=== PATIENT | female | born 1945 | race Caucasian/White ===

== ENCOUNTER 2018-01-28 08:29 | Day surgery (SDC) | payer MEDICARE, BC ==
[~2018-01-28] VITALS: Ht 167.6 cm; Wt 114.7 kg
[~2018-01-28 08:29] MED LIST: AMLO10 PO; AMLO5 PO; ATOR20 PO; ATOR40TA PO; Actos15 MG PO; Adult Low Dose81 MG PO; Aspir 8181 MG PO; Benicar Hct 401 EAC1 PO; CHOL10002 PO; Crestor20 MG PO; GLIP10 PO; NAPR220 PO; OLME40 PO; PIOG15 PO; Percocet 7.5-31 EACH PO; SITA100T2 PO; Tylenol325 MG PO
== END 2018-01-28 10:45 | disposition home or self-care (01) ==
LOC: ORSCSDS 08:29
PROVIDERS: Ophthalmology
PROC: 08RK3JZ Replacement of Left Lens with Synthetic Substitute, Percutaneous Approach (ICD-10-PCS; principal; 2018-01-28 10:00)
DX: H25.12 Age-related nuclear cataract, left eye (principal); I10 Essential (primary) hypertension; E66.01 Morbid (severe) obesity due to excess calories; Z68.41 Body mass index [BMI] 40.0-44.9, adult; Z79.899 Other long term (current) drug therapy
CPT/HCPCS: 82947; J2250; J3010; J3301; J7040; V2632

== ENCOUNTER 2023-12-05 15:59 | Inpatient (IN) | payer MEDICARE ==
[~2023-12-05] VITALS: Ht 165.1 cm; Wt 95.0 kg
[~2023-12-05 15:59] MED LIST changes: -CALC.25 PO; -CALTRATE 600 P1 EACH PO; -ELIQUIS5 M2 PO; -LOSA50 PO; -ONDA4 PO; -PROLIA60 MG/1 ML SC; -Preservision S1 EACH PO; -VISBIOME 112.51 EACH PO; -Vitamin D2000 UNIT PO
[2023-12-05 20:41] VITALS: BP 186/89
[2023-12-05] MEDS ORDERED: Vitamin D2000 UNIT PO (21:00)
[2023-12-05] MEDS ORDERED: LOSA50 PO (21:09)
[2023-12-05] MEDS ORDERED: CALC.25 PO (21:10)
[2023-12-05] MEDS ORDERED: Preservision S1 EACH PO (21:11)
[2023-12-05] MEDS ORDERED: CALTRATE 600 P1 EACH PO (21:12)
[2023-12-05 21:34] LABS: Anti-Xa UFH, PHA Monitoring <0.10 IU/mL; Prothrombin Time Results 10.5 Sec (9.7-11.5)
--- NOTE | 2023-12-05 22:24 | NUR ---
2032: REPORT RECEIVED FROM MATEUSZ ZAVALA IN THE ED. PT ARRIVED THE UNIT VIA W/C. AMBULATED TO THE BATHROOM WITH SBA, STEADY GAIT. A/OX4, NO ACUTE DISTRESS AT THIS TIME. BREATHING IS EVEN AND UNLABORED WITH WHEEZES IN THE BASES. HEPARIN DRIP STARTED PER ORDERS, BOLUS PROVIDED. PT TOLERATED WELL. TELEMTRY IN PLACE EDUCATED TO MEDICATIONS, ROOM, FALL PRECAUTIONS, FIRE SAFETY, AND DISEASE PROCESSESS PERTAINING TO THIS ADMISSION. CALL LIGHT WITHIN REACH, WATER PROVIDED. SECOND PIV TO BE STARTED, CURRENT PIV TO THE LEFT AC IS PATENT. NEEDS ADDRESSED AT THIS TIME. RT CONTACTED TO START CONTINUOUS PULSE OXIMETRY MONITORING.
[2023-12-05 22:47] VITALS: BP 191/81
[2023-12-05 23:15] VITALS: BP 175/91
--- NOTE | 2023-12-06 00:12 | NUR ---
2315: PT WITH N/V 15-20 MINUTES POST START OF AZITHROMYCIN IV. ABX STOPPED. VSS WITH IMPROVED HTN. PT REPORTS NAUSEA IMPROVING WITHIN 5 MINUTES. CALL TO HOSPITALIST, NEW ORDERS RECEIVED, SEE EMR.
[2023-12-06 02:30] VITALS: BP 166/77
--- NOTE | 2023-12-06 05:07 | NUR ---
NAUSEA RESOLVED AND NOT RECURRENT. PT SLEPT THROUGH NIGHT WITH MINIMAL DISTURBANCE. HEPARIN RUNNING WITHOUT INTERUPTION SINCE START. OXYGEN SATURATION MAINTAINED >92% ON ROOM AIR THROUGH THE SHIFT. PT REPORTS NO PAIN. SAFETY MEASURES TAKEN, ALL NEEDS ADDRESSED.
[2023-12-06 05:26] LABS: BASOPHILS ABSOLUTE AUTO 0.03 K/mm3 (0.00-0.23); BASOPHILS PERCENT AUTO 0 % (0-2); EOSINOPHILS ABSOLUTE AUTO 0.08 K/mm3 (0.00-0.68); EOSINOPHILS PERCENT AUTO 1 % (0-6); Hematocrit 29.4 % (33.0-51.0); Hemoglobin 9.4 g/dL (11.5-16.0); IMMATURE GRAN ABSOLUTE AUTO 0.03 K/mm3 (0.00-0.10); IMMATURE GRAN PERCENT AUTO 0 % (0-1); LYMPHOCYTES ABSOLUTE AUTO 0.76 K/mm3 (0.84-5.20); LYMPHOCYTES PERCENT AUTO 8 % (21-46); MONOCYTES ABSOLUTE AUTO 0.47 K/mm3 (0.16-1.47); MONOCYTES PERCENT AUTO 5 % (4-13); Mean Corpuscular HGB 30.7 pg (26.0-34.0); Mean Corpuscular Volume 96 fL (80-100); Mean Platelet Volume 11.6 fL (9.1-12.4); NEUTROPHILS ABSOLUTE AUTO 7.64 K/mm3 (1.96-9.15); NEUTROPHILS PERCENT AUTO 85 % (41-73); Platelet Count 144 K/mm3 (150-400); RDW Coefficient Variation 14.5 % (11.7-14.2); RDW Standard Deviation 50.4 fL (35.1-46.3); Red Blood Cell Count 3.06 M/mm3 (3.80-5.20); White Blood Cell Count 9.01 K/mm3 (4.00-11.30)
[2023-12-06 06:03] LABS: Albumin, Blood 2.8 g/dL (3.4-5.0); Albumin/Globulin Ratio 0.8 (0.8-1.8); Bilirubin, Total 0.4 mg/dL (0.1-1.0); Bun/Creatinine Ratio 24.2 (12.0-20.0); Calcium, Blood 8.1 mg/dL (8.5-10.1); Creatinine, Blood 2.89 mg/dL (0.40-1.00); Globulin, Blood 3.5 g/dL (2.2-4.0); Potassium, Blood 4.9 mmol/L (3.5-5.5); Total Protein, Blood 6.3 g/dL (6.4-8.2)
--- NOTE | 2023-12-06 07:28 | NUR ---
0650: HEPARIN INFUSION ON HOLD PER PHARMACY FOR ONE HOUR. NEW ORDERS TO BE PLACED FOR 0750 RESTART. DAY SHIFT RN ADVISED.
[2023-12-06 07:38] VITALS: BP 182/100
--- NOTE | 2023-12-06 15:54 | NUR ---
SHIFT SUMMARY PT AWAKE AND UP TO BSC DURING SHIFT REPORT; PT HAVING SOME DIARRHEA TODAY, AFTER STARTING ABX LAST NIGHT. PT IS 1P SBA WITH IV TUBING. PT'S HEPARIN DRIP WAS ON HOLD FOR 1 HOUR, PER PHARMACY, AT START OF SHIFT AND THEN RESTARTED. PT TAKEN DOWN TO IMAGING FOR LUNG SCAN THIS AM VIA W/C. EXHAUST AND MUFFLER FITTER TO LATER PER ORDERS, BUT PT HAVING NAUSEA AND REQUESTED TO WAIT. EXHAUST AND MUFFLER FITTER RETURNED LATER AND COMPLETED ORDERS. PT'S TO THIS AFTERNOON AND REMAINS AT BS. PT RESTING QUIETLY BETWEEN VISITING. DENIED FURTHER NEEDS. CALL LT IN REACH.
[2023-12-06 16:08] VITALS: BP 147/81
[2023-12-06 19:22] VITALS: BP 171/99
[2023-12-06 22:05] VITALS: BP 162/82
[2023-12-07] VITALS (7 sets, daily range): BP systolic 133–189; BP diastolic 59–95
[2023-12-07 03:22] LABS: BASOPHILS ABSOLUTE AUTO 0.04 K/mm3 (0.00-0.23); BASOPHILS PERCENT AUTO 0 % (0-2); EOSINOPHILS ABSOLUTE AUTO 0.19 K/mm3 (0.00-0.68); EOSINOPHILS PERCENT AUTO 2 % (0-6); Hematocrit 31.1 % (33.0-51.0); Hemoglobin 9.9 g/dL (11.5-16.0); IMMATURE GRAN ABSOLUTE AUTO 0.04 K/mm3 (0.00-0.10); IMMATURE GRAN PERCENT AUTO 0 % (0-1); LYMPHOCYTES ABSOLUTE AUTO 1.42 K/mm3 (0.84-5.20); LYMPHOCYTES PERCENT AUTO 15 % (21-46); MONOCYTES ABSOLUTE AUTO 0.63 K/mm3 (0.16-1.47); MONOCYTES PERCENT AUTO 6 % (4-13); Mean Corpuscular HGB 30.6 pg (26.0-34.0); Mean Corpuscular HGB Conc 31.8 g/dL (31.5-36.5); Mean Corpuscular Volume 96 fL (80-100); Mean Platelet Volume 11.7 fL (9.1-12.4); NEUTROPHILS ABSOLUTE AUTO 7.47 K/mm3 (1.96-9.15); NEUTROPHILS PERCENT AUTO 76 % (41-73); Platelet Count 182 K/mm3 (150-400); RDW Coefficient Variation 14.6 % (11.7-14.2); RDW Standard Deviation 50.7 fL (35.1-46.3); Red Blood Cell Count 3.24 M/mm3 (3.80-5.20); White Blood Cell Count 9.79 K/mm3 (4.00-11.30)
[2023-12-07 03:41] LABS: Calcium, Blood 8.2 mg/dL (8.5-10.1); Creatinine, Blood 2.87 mg/dL (0.40-1.00); Potassium, Blood 4.3 mmol/L (3.5-5.5)
--- NOTE | 2023-12-07 03:57 | NUR ---
1900: ASSUMED CARE OF PT, BEDSIDE REPORT RECEIVED FROM MATEUSZ OLVERA. PT IS A/OX4, LAYING IN BED WITH HOB ELEVATED. ABLE TO MAKE NEEDS KNOWN. NO ACUTE CHANGES DURING THE NIGHT. HEPARIN MONITORED BY PHARMACY, NO CHANGES. NO PAUSES IN INFUSION. NO S/S OF ADVERSE BLEEDING. PT REPORTED DIAHREA YESTERDAY, NO DIARHEA THIS SHIFT. PT IS ABLE TO MAINTAIN OXYGEN SATURATION 93-96% ON ROOM AIR. TELEMETRY MAINTAINED. SAFETY MEASURES TAKEN AND ALL NEEDS ADDRESSED.
--- NOTE | 2023-12-07 11:36 | NUR ---
SPOKE TO DR CAMACHO, HE PLACING ORDERS TO STOP HEPARIN. OKAY TO STOP NOW AND OKAY FOR PT TO WALK HALLS.
--- NOTE | 2023-12-07 17:25 | NUR ---
PT QUITE PLEASANT TODAY. D/C'D HEPARIN TODAY, STARTED ELIQUVIKRAM. PT AMBULATED PART OF ECHEVERRIA AND CAME BACK STATED SOME SOB. WHEN AT ROOM, HOOKED TO CONT BIOX, SHOWED 88 THEN READILY CAME BACK TO 92% WITH R/A. NO C/O PAIN OR SOB AT REST. NO OTHER NEW CONCERNS NOTED. HUSB AT BEDSIDE. BED IN LOW POSITION, CALL LITE IN REACH, CALLS APROP
[2023-12-08 04:29] VITALS: BP 144/79
[2023-12-08 05:20] LABS: BASOPHILS ABSOLUTE AUTO 0.02 K/mm3 (0.00-0.23); BASOPHILS PERCENT AUTO 0 % (0-2); EOSINOPHILS ABSOLUTE AUTO 0.24 K/mm3 (0.00-0.68); EOSINOPHILS PERCENT AUTO 4 % (0-6); Hemoglobin 9.2 g/dL (11.5-16.0); IMMATURE GRAN ABSOLUTE AUTO 0.03 K/mm3 (0.00-0.10); IMMATURE GRAN PERCENT AUTO 0 % (0-1); LYMPHOCYTES ABSOLUTE AUTO 0.99 K/mm3 (0.84-5.20); LYMPHOCYTES PERCENT AUTO 15 % (21-46); MONOCYTES ABSOLUTE AUTO 0.55 K/mm3 (0.16-1.47); MONOCYTES PERCENT AUTO 8 % (4-13); Mean Corpuscular HGB 30.1 pg (26.0-34.0); Mean Corpuscular HGB Conc 30.7 g/dL (31.5-36.5); Mean Corpuscular Volume 98 fL (80-100); NEUTROPHILS ABSOLUTE AUTO 4.93 K/mm3 (1.96-9.15); NEUTROPHILS PERCENT AUTO 73 % (41-73); NRBC ABSOLUTE 0.02 K/mm3 (0.00-0.02); NRBC Auto 0.3 /100 WBC (0.0-0.2); Platelet Count 161 K/mm3 (150-400); RDW Coefficient Variation 14.8 % (11.7-14.2); RDW Standard Deviation 52.7 fL (35.1-46.3); Red Blood Cell Count 3.06 M/mm3 (3.80-5.20); White Blood Cell Count 6.76 K/mm3 (4.00-11.30)
[2023-12-08 05:40] LABS: Bun/Creatinine Ratio 20.6 (12.0-20.0); Calcium, Blood 7.9 mg/dL (8.5-10.1); Creatinine, Blood 3.49 mg/dL (0.40-1.00); Potassium, Blood 4.1 mmol/L (3.5-5.5)
--- NOTE | 2023-12-08 05:42 | NUR ---
1900: ASSUMED CARE OF PT, BEDSIDE REPORT RECEIVED FROM MATEUSZ MEYER. PT IS LAYING IN BED WITH HOB ELEVATED. A/OX4, REPORTS NO PAIN AND IMPROVED SYMPTOMS. OBSTETRICIAN AND GYNAECOLOGIST IN PLACE. UP SBA TO BSC MULTIPLE TIMES DURING THE NIGHT. MILD EDEMA TO RIGHT FOREARM AND HAND, PT REPORTS THIS HAS HAPPENED BEFORE WHEN SHE IS NOT VERY ACTIVE. WILL CONTINUTE TO MONITOR. ELEVATED ON PILLOWS AT THIS TIME. PIV SHOWS NO S/S OF INFILTRATION OR INFECTION, NO PAIN. RESPIRATIONS ARE IMPROVED TO DIMINISHED IN THE BASES, WHEEZES ARE RESOLVED. NEEDS ADDRESSED THROUGHOUT THE SHIFT, SAFETY MEASURES TAKEN.
[2023-12-08 07:29] VITALS: BP 151/74
[2023-12-08 15:35] VITALS: BP 134/70
--- NOTE | 2023-12-08 17:08 | NUR ---
SHIFT SUMMARY TOOK OVER CARE OF PATIENT AT 1500. PATIENT DENIES PAIN, NAUSEA, AND SHORTNESS OF BREATH. PATIENT IS A SBA TO THE BATHROOM. PATIENT EATING AND DRINKING WELL. PATIENT HAD VISITORS IN AFTERNOON. PATIENT POSSIBLE DISCHARGE FOR TOMORROW PER DR. MG. PATIENT EAGER TO GO HOME. CALL LIGHT WITHIN REACH. PATIENT IS PLEASANT AND COOPERATIVE WITH CARE.
[2023-12-08 19:36] VITALS: BP 141/69
[2023-12-08] MEDS ORDERED: PROLIA60 MG/1 ML SC (23:43)
[2023-12-09 03:52] VITALS: BP 142/71
[2023-12-09 04:57] LABS: BASOPHILS ABSOLUTE AUTO 0.02 K/mm3 (0.00-0.23); BASOPHILS PERCENT AUTO 0 % (0-2); EOSINOPHILS ABSOLUTE AUTO 0.23 K/mm3 (0.00-0.68); EOSINOPHILS PERCENT AUTO 3 % (0-6); Hemoglobin 9.2 g/dL (11.5-16.0); IMMATURE GRAN ABSOLUTE AUTO 0.02 K/mm3 (0.00-0.10); IMMATURE GRAN PERCENT AUTO 0 % (0-1); LYMPHOCYTES ABSOLUTE AUTO 1.01 K/mm3 (0.84-5.20); LYMPHOCYTES PERCENT AUTO 15 % (21-46); MONOCYTES ABSOLUTE AUTO 0.63 K/mm3 (0.16-1.47); MONOCYTES PERCENT AUTO 9 % (4-13); Mean Corpuscular HGB 30.8 pg (26.0-34.0); Mean Corpuscular HGB Conc 31.7 g/dL (31.5-36.5); Mean Corpuscular Volume 97 fL (80-100); Mean Platelet Volume 10.8 fL (9.1-12.4); NEUTROPHILS PERCENT AUTO 72 % (41-73); Platelet Count 169 K/mm3 (150-400); RDW Coefficient Variation 14.7 % (11.7-14.2); RDW Standard Deviation 50.9 fL (35.1-46.3); Red Blood Cell Count 2.99 M/mm3 (3.80-5.20); White Blood Cell Count 6.81 K/mm3 (4.00-11.30)
[2023-12-09 05:21] LABS: Albumin, Blood 2.7 g/dL (3.4-5.0); Anion Gap 8 mmol/L (6-16); Blood Urea Nitrogen 72 mg/dL (8-24); Bun/Creatinine Ratio 18.8 (12.0-20.0); CO2, Blood 20 mmol/L (21-32); Calcium, Blood 7.6 mg/dL (8.5-10.1); Chloride, Blood 106 mmol/L (98-108); Creatinine, Blood 3.84 mg/dL (0.40-1.00); Glomerular Filtration Rate 12 (60-); Glucose, Blood 150 mg/dL (70-99); Phosphorus, Blood 4.7 mg/dL (2.5-4.9); Potassium, Blood 3.9 mmol/L (3.5-5.5); Sodium, Blood 134 mmol/L (136-145)
--- NOTE | 2023-12-09 06:48 | NUR ---
SUMMARY: PT A/OX4, IS INDEPENDENT IN ROOM AND CALLS APPROPRIATELY TO SPECIFY NEEDS. SHE'S DENIED SOB, DYSPNEA AND ALL OTHE S/S RESP DISTRESS. SPO2 WNL AND RESPS E/U ON RA. IV ABX RECEIVED AND THEN IV SL'D. NO ACUTE CHANGES, VSS AND AFEBRILE. POSSIBLE DC TODAY PENDING AM LABS. WCTM AND REPORT TO DAY RN.
[2023-12-09 07:25] VITALS: BP 157/64
[2023-12-09] MEDS ORDERED: ELIQUIS5 M2 PO (11:48)
[2023-12-09] MEDS ORDERED: ONDA4 PO (11:49)
[2023-12-09] MEDS ORDERED: VISBIOME 112.51 EACH PO (11:52)
--- NOTE | 2023-12-09 12:43 | NUR ---
DISCHARGE A&OX4, COOPERATIVE WITH CARE. NO ACUTE EVENTS THIS SHIFT. IV'S REMOVED BY CASING TESTER. PRESSURE APPLIED FOR 3 MINUTES DUE TO BLEEDING. PT TOELRATED WELL. AT BEDSIDE. DISCHARGE PACKET EXPLAINED AND NEW MEDS REVIEWED. PT DENIED ANY QUESTIONS OR CONCERNS. DISCHARGE VOLUNTEER PICKED UP PATIENT AND WHEELED HER OUT FOR DISCHARGE AT 1240.
== END 2023-12-09 12:40 | disposition home or self-care (01) | DRG 175 ==
LOC: ER 15:59 → MEDS 18:43
PROVIDERS: Family Medicine; Internal Medicine; ADMIT Student in an Organized Health Care Education/Training Program
DX: I26.99 Other pulmonary embolism without acute cor pulmonale (principal); I50.23 Acute on chronic systolic (congestive) heart failure; J96.01 Acute respiratory failure with hypoxia; I13.2 Hypertensive heart and chronic kidney disease with heart failure and with stage 5 chronic kidney disease, or end stage renal disease; N18.5 Chronic kidney disease, stage 5; E11.22 Type 2 diabetes mellitus with diabetic chronic kidney disease; E78.5 Hyperlipidemia, unspecified; D63.1 Anemia in chronic kidney disease; Z88.2 Allergy status to sulfonamides; Z79.84 Long term (current) use of oral hypoglycemic drugs; Z79.82 Long term (current) use of aspirin; Z85.3 Personal history of malignant neoplasm of breast; Z92.21 Personal history of antineoplastic chemotherapy; Z92.3 Personal history of irradiation
CPT/HCPCS: 36415; 71250; 78582; 80048; 80053; 80069; 82947; 83880; 84145; 84484; 85025; 85520; 85610; 85730; 93005; 93010; 93306; 93970; 94762; 96365; 96375; 99285-25; A9270; A9540; J0360; J0456; J0696; J1644; J1940; J2405; J7050; Q5106

== ENCOUNTER → 2023-12-05 | Outpatient (CLI) | payer MEDICARE ==
[~2023-12-05] MED LIST changes: +ASPIR 8181 M1 PO; +ATOR80 PO; +Benicar40 MG PO; +CALC.25 PO; +CALTRATE 600 P1 EACH PO; +CHLO25B PO; +ELIQUIS5 M2 PO; +FERSU300 PO; +GLIP10ER PO; +LOSA50 PO; +METO100ER PO; +Norvasc2.5 MG PO; +ONDA4 PO; +PRESERVISION A1 EACH PO; +PROLIA60 MG/1 ML SC; +Preservision S1 EACH PO; +VISBIOME 112.51 EACH PO; +VITAMIN D35000 UNIT PO; +Vitamin D2000 UNIT PO
[2023-12-05 13:40] LABS: BASOPHILS ABSOLUTE AUTO 0.03 K/mm3 (0.00-0.23); BASOPHILS PERCENT AUTO 0 % (0-2); EOSINOPHILS ABSOLUTE AUTO 0.15 K/mm3 (0.00-0.68); EOSINOPHILS PERCENT AUTO 2 % (0-6); Hematocrit 35.1 % (33.0-51.0); Hemoglobin 10.8 g/dL (11.5-16.0); IMMATURE GRAN ABSOLUTE AUTO 0.03 K/mm3 (0.00-0.10); IMMATURE GRAN PERCENT AUTO 0 % (0-1); LYMPHOCYTES ABSOLUTE AUTO 0.81 K/mm3 (0.84-5.20); LYMPHOCYTES PERCENT AUTO 10 % (21-46); MONOCYTES ABSOLUTE AUTO 0.42 K/mm3 (0.16-1.47); MONOCYTES PERCENT AUTO 5 % (4-13); Mean Corpuscular HGB Conc 30.8 g/dL (31.5-36.5); Mean Corpuscular Volume 98 fL (80-100); Mean Platelet Volume 11.5 fL (9.1-12.4); NEUTROPHILS ABSOLUTE AUTO 6.62 K/mm3 (1.96-9.15); NEUTROPHILS PERCENT AUTO 82 % (41-73); Platelet Count 178 K/mm3 (150-400); RDW Coefficient Variation 14.4 % (11.7-14.2); RDW Standard Deviation 51.6 fL (35.1-46.3); White Blood Cell Count 8.06 K/mm3 (4.00-11.30)
[2023-12-05 13:51] LABS: Albumin, Blood 3.4 g/dL (3.4-5.0); Albumin/Globulin Ratio 0.9 (0.8-1.8); Bilirubin, Total 0.5 mg/dL (0.1-1.0); Bun/Creatinine Ratio 21.2 (12.0-20.0); Creatinine, Blood 3.3 mg/dL (0.40-1.00); Potassium, Blood 5.1 mmol/L (3.5-5.5); Total Protein, Blood 7.4 g/dL (6.4-8.2)
== END | disposition home or self-care (01) ==
LOC: LAB 13:34 → LAB SHORT 13:34
PROVIDERS: Emergency Medicine
DX: R06.00 Dyspnea, unspecified (principal)
CPT/HCPCS: 80053; 83880; 84484; 85025; 85379

== ENCOUNTER 2024-03-24 18:26 | Inpatient (IN) | payer MEDICARE ==
[~2024-03-24] VITALS: Ht 175.3 cm; Wt 92.0 kg
[2024-03-25 13:00] VITALS: BP 59/34
== END 2024-03-25 17:27 | DRG 682 ==
LOC: ER 18:26 → ICUE 21:40 → MEDS 21:40 → ICUE 03-25 11:09
PROVIDERS: ADMIT Internal Medicine
PROC: 0T9B70Z Drainage of Bladder with Drainage Device, Via Natural or Artificial Opening (ICD-10-PCS; principal; 2024-03-24)
PROC: 3E033XZ Introduction of Vasopressor into Peripheral Vein, Percutaneous Approach (ICD-10-PCS; 2024-03-24)
PROC: 02HV33Z Insertion of Infusion Device into Superior Vena Cava, Percutaneous Approach (ICD-10-PCS; 2024-03-25)
PROC: B548ZZA Ultrasonography of Superior Vena Cava, Guidance (ICD-10-PCS; 2024-03-25)
DX: N17.9 Acute kidney failure, unspecified (principal); G93.41 Metabolic encephalopathy; E87.20 Acidosis, unspecified; I13.2 Hypertensive heart and chronic kidney disease with heart failure and with stage 5 chronic kidney disease, or end stage renal disease; R57.9 Shock, unspecified; I50.42 Chronic combined systolic (congestive) and diastolic (congestive) heart failure; Z66 Do not resuscitate; E11.22 Type 2 diabetes mellitus with diabetic chronic kidney disease; Z51.5 Encounter for palliative care; R00.1 Bradycardia, unspecified; N18.5 Chronic kidney disease, stage 5; E86.1 Hypovolemia; I48.91 Unspecified atrial fibrillation; E87.5 Hyperkalemia; E78.5 Hyperlipidemia, unspecified; R45.1 Restlessness and agitation; R09.2 Respiratory arrest; E66.9 Obesity, unspecified; Z90.12 Acquired absence of left breast and nipple; Z90.89 Acquired absence of other organs; Z88.2 Allergy status to sulfonamides; Z79.01 Long term (current) use of anticoagulants; Z79.82 Long term (current) use of aspirin; Z79.899 Other long term (current) drug therapy